=== PATIENT | female | born 1965 | race Caucasian/White ===

== ENCOUNTER 2022-07-25 14:20 | Emergency (ER) | payer BC ==
[2022-07-25] MEDS ORDERED: KETOROLAC 30 MG/ML INJ ONE (14:47)
[2022-07-25 14:59] LABS: Absolute Lymphocytes (CBC) 3.7 K/uL (0.7-4.9); Hematocrit 41.5 % (36.0-45.0); MCV 91.3 fL (80-100); MPV 8.8 fL (7.6-11.3); RBC Red Blood Cell Count 4.54 M/uL (3.86-4.86)
[2022-07-25 15:17] LABS: Albumin 3.5 g/dL (3.4-5.0); Bilirubin Total 0.4 mg/dL (0.2-1.0); Potassium 3.8 mEq/L (3.5-5.1); Protein, Total 7.2 g/dL (6.4-8.2)
[2022-07-25 16:17] LABS: Specific Gravity 1.011 (1.005-1.030); Urine Bacteria <20 /HPF (<20); Urine Bilirubin NEGATIVE (Negative); Urine Blood 1+ (Negative); Urine Clarity Clear (Clear); Urine Color Light-Yellow (Yellow); Urine Glucose NEGATIVE (Negative); Urine Protein NEGATIVE (Negative); Urine RBC <5 /HPF (None Seen); Urine Urobilinogen 1+ (Normal); Urine pH 6.5 (5.0-7.0)
--- NOTE | 2022-07-25 17:24 | RAD REPORT ---
EXAM DESCRIPTION: CT - Abdomen Pelvis W Contrast - 07/25/2022 4:07 pm CLINICAL HISTORY: ABD PAIN COMPARISON: Abdomen Pelvis W Contrast dated 03/02/2017 TECHNIQUE: Thin cut axial CT imaging of the abdomen and pelvis was performed following intravenous a dministration of 100 mL Isovue 300. Multiplanar reformats were generated and reviewed. All CT scans are performed using dose optimization technique as appropriate and may include automated exposure control or mA/KV adjustment according to patient size. FINDINGS: No suspicious findings in the lung bases. The liver demonstrates multiple fluid density well-circumscribed lesions, the largest measures 1.9 ce ntimeter in the subcapsular right liver lobe, and on the left measures 11 millimeter. Some of these h ave increased in size since the prior exam, but are not well evaluated given single-phase contrast ex am, and sub centimeter size of most of the lesions. Status post splenectomy. Right adrenal gland is u nremarkable. Stable lobulated left adrenal mass measuring 3.5 x 2.8 centimeter. Status post cholecyst ectomy and partial pancreatic resection. 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 Symmetric renal function is seen with no hydronephrosis or suspicious renal mass. No dilated bowel loops or bowel wall thickening. No free air, free fluid or inflammatory stranding. N o hernia, mass or bulky lymphadenopathy. The urinary bladder is suboptimally distended, limiting eval uation. Ventral hernia repair mesh in place. No suspicious bony findings. IMPRESSION: No acute intra-abdominal process. Slight increase in size of some fluid density hepatic lesions, suggestive of cysts although not well evaluated. Other stable findings including a left adrenal mass.
--- NOTE | 2022-07-25 17:40 | ER ---
Nurse's Notes [facility] Name: Bernie Lezama Age: 56 yrs Sex: Female : 1965 Arrival Date: 07/25/2022 Time: 14:20 Bed 15 Private MD: Diagnosis: Lower abdominal pain, unspecified;Left adrenal mass;Liver hypodensities Presentation: 07/25 14:29 Chief complaint: Patient states: R sided abdominal pain radiating to R side, has been ph occurring for approx 1 year but has progressively gotten worse. also reports nausea, denies V/D. Hx of multiple abdominal sx. Coronavirus screen: Vaccine status: Patient reports receiving the 2nd dose of the covid vaccine. Ebola Screen: No symptoms or risks identified at this time. Initial Sepsis Screen: Does the patient meet any 2 criteria? No. Patient's initial sepsis screen is negative. Does the patient have a suspected source of infection? No. Patient's initial sepsis screen is negative. Risk Assessment: Do you want to hurt yourself or someone else? Patient reports no desire to harm self or others. Onset of symptoms was July 25, 2022. 14:29 Method Of Arrival: Ambulatory ph 14:29 Acuity: JEAN CARLOS 3 ph Historical: - Allergies: 14:27 No Known Allergies; ph - PSHx: 14:27 Appendectomy; Cholecystectomy; Splenectomy; Pancreas removed; ph Screenin:04 [facility] ED Fall Risk Assessment (Adult) History of falling in the last 3 months, kc6 including since admission No falls in past 3 months (0 pts) Confusion or Disorientation No (0 pts) Intoxicated or Sedated No (0 pts) Impaired Gait No (0 pts) Mobility Assist Device Used No (0 pt) Altered Elimination No (0 pt) Score/Fall Risk Level 0 - 2 = Low Risk Oriented to surroundings, Maintained a safe environment, Educated pt \T\ family on fall prevention, incl call for assistance when getting out of bed, Assessed \T\ reinforced patient's understanding of fall precautions, Hourly rounding (assess needs \T\ fall precautionary measures) done. Abuse screen: Denies threats or abuse. Denies injuries from another. Nutritional screening: No deficits noted. Tuberculosis screening: No symptoms or risk factors identified. Assessment: 15:03 General: Appears in no apparent distress. comfortable, Behavior is calm, cooperative, kc6 appropriate for age. Pain: Complains of pain in right lower quadrant and right upper quadrant Pain does not radiate. Pain currently is 6 out of 10 on a pain scale. Neuro: Level of Consciousness is awake, alert, obeys commands, Oriented to person, place, time, situation, Appropriate for age. Cardiovascular: Capillary refill < 3 seconds. Respiratory: Airway is patent Trachea midline Respiratory effort is even, unlabored, Respiratory pattern is regular, symmetrical. GI: Abdomen is flat, non-distended, Bowel sounds present X 4 quads. Abd is soft X 4 quads Abdomen is tender to palpation in right lower quadrant and right upper quadrant Patient currently denies constipation, diarrhea, nausea, vomiting. : No signs and/or symptoms were reported regarding the genitourinary system. EENT: No signs and/or symptoms were reported regarding the EENT system. Derm: No signs and/or symptoms reported regarding the dermatologic system. Skin is intact, Skin is pink, warm \T\ dry. Musculoskeletal: No signs and/or symptoms reported regarding the musculoskeletal system. Circulation, motion, and sensation intact. Capillary refill < 3 seconds, Range of motion: intact in all extremities. 16:03 Reassessment: Patient appears in no apparent distress at this time. No changes from kc6 previously documented assessment. Patient and/or family updated on plan of care and expected duration. Pain level reassessed. Patient is alert, oriented x 3, equal unlabored respirations, skin warm/dry/pink. 17:10 Reassessment: Patient appears in no apparent distress at this time. No changes from kc6 previously documented assessment. Patient and/or family updated on plan of care and expected duration. Pain level reassessed. Patient is alert, oriented x 3, equal unlabored respirations, skin warm/dry/pink. 17:45 Reassessment: Patient appears in no apparent distress at this time. No changes from kc6 previously documented assessment. Patient and/or family updated on plan of care and expected duration. Pain level reassessed. Patient is alert, oriented x 3, equal unlabored respirations, skin warm/dry/pink. Vital Signs: 14:29 BP 151 / 84; Pulse 95; Resp 18; Temp 97.1; Pulse Ox 98% on R/A; ph 16:21 BP 131 / 79; Pulse 74; Resp 18 S; Pulse Ox 96% on R/A; kc6 17:10 BP 145 / 78; Pulse 71; Resp 19 S; Pulse Ox 95% on R/A; kc6 ED Course: 14:22 Patient arrived in ED. rg4 14:23 Eduardo Flores MD is Attending Physician. rn 14:27 Attending Physician role handed off by Eduardo Flores MD ms3 14:27 Colten Mercedes DO is Attending Physician. ms3 14:32 Triage completed. ph 14:32 Arm band placed on Patient placed in an exam room. ph 14:34 Nevaeh Reyna, RN is Primary Nurse. kc6 14:55 Inserted saline lock: 20 gauge in right antecubital area, using aseptic technique. kc6 Blood collected. 15:04 Patient has correct armband on for positive identification. Bed in low position. Call kc6 light in reach. Side rails up X 1. Adult w/ patient. 16:09 CT Abd/Pelvis - IV Contrast Only In Process Unspecified. EDMS 17:38 Lawrence Winn DO is Referral Physician. ms3 17:45 No provider procedures requiring assistance completed. IV discontinued, intact, kc6 bleeding controlled, No redness/swelling at site. Pressure dressing applied. Administered Medications: 14:54 Drug: TORadol - Ketorolac IVP 10 mg Route: IVP; Site: right antecubital; kc6 16:24 Follow up: Response: No adverse reaction kc6 Medication: 17:45 VIS not applicable for this client. kc6 Outcome: 17:39 Discharge ordered by MD. ms3 17:45 Discharged to home ambulatory, with family. kc6 17:45 Condition: improved 17:45 Discharge instructions given to patient, Instructed on discharge instructions, follow up and referral plans. Demonstrated understanding of instructions, follow-up care. 17:50 Patient left the ED. kc6 Signatures: Dispatcher [employer] EDMS Eduardo Flores MD MD rn Hall, Patricia, RN RN ph Garcia, Rubi rg4 Colten Mercedes DO DO ms3 Nevaeh Reyna RN RN kc6
--- NOTE | 2022-07-25 17:40 | EDPHYS ---
Physician Documentation [facility] Name: Bernie Lezama Age: 56 yrs Sex: Female : 1965 Arrival Date: 07/25/2022 Time: 14:20 Bed 15 Private MD: ED Physician Colten Mercedes HPI: 07/25 14:40 This 56 yrs old Female presents to ER via Ambulatory with complaints of Abdominal pain. ms3 14:40 56-year-old female status post splenectomy, pancreatectomy, cholecystectomy with ms3 hyperlipidemia presents for right-sided abdominal pain that has been ongoing for 1 year. Patient states the pain has recently become worse. Patient rates the pain an 8/10 describes it as cramping. Patient was sent from [facility], Dr. Xavier Trinh.. Historical: - Allergies: 14:27 No Known Allergies; ph - PSHx: 14:27 Appendectomy; Cholecystectomy; Splenectomy; Pancreas removed; ph ROS: 14:40 Constitutional: Negative for fever, and chills. Neck: Negative for injury, pain, and ms3 swelling, Cardiovascular: Negative for chest pain, and palpitations. Respiratory: Negative for shortness of breath, cough, wheezing, and pleuritic chest pain. 14:40 MS/Extremity: Negative for injury and deformity, Skin: Negative for injury, rash, and discoloration. 14:40 Abdomen/GI: Positive for abdominal pain, Negative for nausea, vomiting, and diarrhea. 14:40 All other systems are negative. Exam: 14:40 Constitutional: This is a well developed, well nourished patient who is awake, alert, ms3 and in no acute distress. Head/Face: Normocephalic, atraumatic. Neck: Trachea midline, no cervical lymphadenopathy. Supple, full range of motion without nuchal rigidity, or vertebral point tenderness. No Meningismus. Chest/axilla: Normal chest wall appearance and motion. Nontender with no deformity. Cardiovascular: Regular rate and rhythm with a normal S1 and S2. No gallops, murmurs, or rubs. Normal PMI, no JVD. No pulse deficits. Respiratory: Lungs have equal breath sounds bilaterally, clear to auscultation and percussion. No rales, rhonchi or wheezes noted. No increased work of breathing, no retractions or nasal flaring. 14:40 Abdomen/GI: Inspection: abdomen appears normal, Bowel sounds: normal, Palpation: moderate abdominal tenderness, in the right upper quadrant and right lower quadrant. Vital Signs: 14:29 BP 151 / 84; Pulse 95; Resp 18; Temp 97.1; Pulse Ox 98% on R/A; ph 16:21 BP 131 / 79; Pulse 74; Resp 18 S; Pulse Ox 96% on R/A; kc6 17:10 BP 145 / 78; Pulse 71; Resp 19 S; Pulse Ox 95% on R/A; kc6 MDM: 14:23 Patient medically screened. rn 14:40 Differential diagnosis: Bowel obstruction vs Adhesions vs Appendicitis vs ms3 Diverticulitis. 17:28 ED course: Discussed case with Dr Trinh. Patient to follow up in clinic with Dr Winn. ms3 He is aware of adrenal mass and hypodensities in the liver.. 07/26 10:58 Data reviewed: vital signs, nurses notes, lab test result(s), radiologic studies, and ms3 as a result, I will discharge patient. Management of patient was discussed with the following: Primary Care Provider: Dr Trinh. I considered the following discharge prescriptions or medication management in the emergency department Medications were administered in the Emergency Department. See MAR. Counseling: I had a detailed discussion with the patient and/or guardian regarding: the historical points, exam findings, and any diagnostic results supporting the discharge/admit diagnosis, lab results, radiology results, the need for outpatient follow up, to return to the emergency department if symptoms worsen or persist or if there are any questions or concerns that arise at home. Response to treatment: the patient's symptoms have mildly improved after treatment, and as a result, I will discharge patient. Special discussion: Based on the patient's Hx, exam, and Dx evaluation, there is no indication for emergent surgery or inpatient Tx. It is understood by the patient/guardian that if the Sx's persist or worsen they need to return immediately for re-evaluation. 07/25 14:37 Order name: CBC with Diff; Complete Time: 16:21 ms3 07/25 14:37 Order name: CMP; Complete Time: 16:21 ms3 07/25 14:37 Order name: Lipase; Complete Time: 16:21 ms3 07/25 14:37 Order name: Urinalysis w/ reflexes; Complete Time: 16:21 ms3 07/25 14:37 Order name: CT Abd/Pelvis - IV Contrast Only; Complete Time: 17:26 ms3 07/25 14:37 Order name: IV Saline Lock; Complete Time: 14:54 ms3 07/25 14:37 Order name: Labs collected and sent; Complete Time: 14:54 ms3 Administered Medications: 07/25 14:54 Drug: TORadol - Ketorolac IVP 10 mg Route: IVP; Site: right antecubital; kc6 16:24 Follow up: Response: No adverse reaction kc6 Disposition Summary: 07/25/22 17:39 Discharge Ordered Location: Home ms3 Condition: Stable ms3 Diagnosis - Lower abdominal pain, unspecified ms3 - Left adrenal mass ms3 - Liver hypodensities ms3 Followup: ms3 - With: Lawrence Winn DO - When: 2 - 3 days - Reason: Recheck today's complaints Discharge Instructions: - Discharge Summary Sheet ms3 - Abdominal Pain, Adult ms3 Forms: - Medication Reconciliation Form ms3 - Thank You Letter ms3 - Antibiotic Education ms3 - Prescription Opioid Use ms3 Signatures: Dispatcher [employer] EDEduardo Sapp MD MD rn Hall, Patricia, RN RN Colten Enamorado DO DO ms3 Nevaeh Reyna, RN RN kc6
[2022-07-25 18:22] VITALS: TEMP 97.1
[2022-07-25 18:25] VITALS: BP 145/78; O2SAT 95
== END 2022-07-25 17:50 | disposition home or self-care (01) ==
LOC: ER 14:20
DX: E27.8 Other specified disorders of adrenal gland (principal); K76.89 Other specified diseases of liver; Z90.49 Acquired absence of other specified parts of digestive tract; Z90.81 Acquired absence of spleen
CPT/HCPCS: 85025; 81001; 36415; 83690; 80053; 74177; 96374; 99284; Q9967